=== PATIENT | female | born 2000 | race African-American/Black ===

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

== ENCOUNTER 2022-07-27 23:39 | Emergency (ER) | payer OTHER ==
[2022-07-27 23:56] VITALS: BP 118/75; PULSE 108; RESP 18; TEMP 99.4; BMI 21.4
[2022-07-28] MEDS ORDERED: IBUPROFEN 600 MG TABLET (FP) PO ONE ×2 (00:43→00:45)
[2022-07-28] MEDS ORDERED: METHOCARBAMOL 500 MG TABLET PO ONE (00:43)
[2022-07-28] MEDS ORDERED: METHOCARBAMOL 500 MG TABLET ONE (00:45)
[2022-07-28] MEDS ORDERED: LIDOCAINE 5% TOPICAL PATCH TP ONE (00:54)
[2022-07-28] MEDS ORDERED: LIDOCAINE 5% TOPICAL PATCH ONE (01:01)
[2022-07-28 02:18] LABS: THROAT:GRP A STREP NOT DETECTED (NOTDETECTED)
[2022-07-28] MEDS ORDERED: LIDOCAINE PATCH REMOVAL MC SCH (22:00)
== END 2022-07-28 01:04 | disposition home or self-care (01) ==
LOC: JER 23:39
DX: M62.838 Other muscle spasm (principal); M54.2 Cervicalgia; R50.9 Fever, unspecified; Z20.822 Contact with and (suspected) exposure to COVID-19
CPT/HCPCS: 0241U-QW; 87070; 87651; 99283-25